=== PATIENT | male | born 2000 | race Caucasian/White ===

== ENCOUNTER 2021-01-30 11:01 | Emergency (ER) | payer OTHER, SELFPAY ==
[2021-01-30 11:01] VITALS: BP 150/89; PULSE 112; RESP 16; TEMP 36.6; O2SAT 98; BMI 30.4
--- NOTE | 2021-01-30 11:32 | RAD_ITS ---
STUDY: X-RAY CHEST REASON FOR EXAM: Male, 20 years old. Chest pain. TECHNIQUE: PA and lateral views of the chest. COMPARISON: None. FINDINGS: EKG electrodes are seen. The lungs are clear and expanded. There is no demonstrated pleural abnormality. Normal size heart. Normal mediastinum and miranda. Normal visualized pulmonary arteries. Normal visualized aortic arch and descending thoracic aorta. Normal visualized thoracic spine. Normal visualized ribs, clavicles, and shoulders. There is no demonstrated abnormality of the visualized soft tissue structures of the upper abdomen. RAD/Chest PA and Lateral IMPRESSION: Normal x-ray examination of the chest. Electronically Signed: Krzysztof Rizvi MD at 12:30 EST , Service support ,
--- NOTE | 2021-01-30 11:32 | EKG12_ITS ---
Test Reason : CP Blood Pressure : / mmHG Vent. Rate : 095 BPM Atrial Rate : 095 BPM P-R Int : 128 ms QRS Dur : 088 ms QT Int : 358 ms P-R-T Axes : 041 009 018 degrees QTc Int : 449 ms Normal sinus rhythm Normal ECG Confirmed by CHRISTEL EDDY, DAYLIN ([id number]), assignment desk editor DREW DEL VALLE ([id number]) on 02/02/2021 1:11:26 PM Referred By: TAINA/JAVI Confirmed By:DAYLIN KEARNEY MD
--- NOTE | 2021-01-30 11:32 | ED.VIS.CHEST ---
HPI History of Present Illness Chief Complaint: Chest Pain Informant: patient Onset/Context/Timing Onset: Days (3-4) Activity at onset: gradual Timing: Intermittent Quality: Positive for Burning Location: Substernal (w/o radiation) Current Severity: Mild Maximum Severity: Moderate Worsened By: Exertion (but only in cold outside air) Relieved By: Rest (indoors) Associated Symptoms: Negative for Nausea, Vomiting, Diaphoresis, Dyspnea, Cough, Fever, Lightheadedness and Palpitations Narrative Narrative: Patient presents for evaluation of nonpleuritic chest burning that feels like it is in his lungs when he exerts himself, but only in the outdoor cold air. When he walks around indoors he does not have symptoms. He denies any coughing fevers history of asthma inhalation of any abnormal/chemical substance lately, or any other symptoms. No leg pain or swelling, no history of DVT or PE. He is a local college student who was sent here for further evaluation. PE Risk Factors: Negative for Recent Travel/Surgery, Recent Immobilization, Prior DVT or PE, Cancer and OCP + Smoking + >/=35 PFSH PFSH Medical History no medical history no medical history Home Medications albuterol sulfate [Ventolin HFA] 1 - 2 puff INHALATION Q4H PRN PRN #1 inhaler 01/30/21 [Rx Last Taken Unknown] Allergy/AdvReac Type Severity Reaction Status Date / Time No Known Allergies Allergy Verified 01/30/21 11:03 Surgical History no surgical history no surgical history Social History Smoking Status: Unknown if ever smoked ROS ROS ED Constitutional Constitutional ED: Denies chills or fever(s) Eyes Eyes: Denies change in vision or diplopia ENT ENT ED: Denies rhinorrhea or sore throat Cardiovascular Cardiovascular: Reports as per HPI and chest pain; Denies palpitations Respiratory/Chest Respiratory/Chest: Denies cough or dyspnea Gastrointestinal Gastrointestinal: Denies abdominal pain, diarrhea, nausea or vomiting Genitourinary Genitourinary ED: Denies dysuria or hematuria Musculoskeletal Musculoskeletal: Denies back pain or neck pain Integumentary Denies abscess or rash Neurologic Neurologic: Denies headache(s), paresthesias or weakness Psychiatric Psychiatric: Denies anxiety or suicidal thoughts EXAM Physical Exam Const Vital Signs: 01/30/21 11:01 01/30/21 12:11 01/30/21 13:39 Temperature 97.8 F Temperature Source Temporal Pulse Rate 112 H 88 Respiratory Rate 16 14 Respiratory Effort Normal Non-Labored Blood Pressure 150/89 H Blood Pressure Mean 109 Pulse Ox 98 98 Oxygen Delivery Method Room Air Room Air 01/30/21 14:11 Temperature Temperature Source Pulse Rate 87 Respiratory Rate 20 H Respiratory Effort Blood Pressure 121/73 H Blood Pressure Mean 89 Pulse Ox 99 Oxygen Delivery Method Room Air Positive well nourished and well developed General Appearance ED: well developed and NAD HEENT Reports moist mucous membranes normocephalic and atraumatic Eyes PERRL and EOMs intact bilaterally Neck full ROM and supple Resp normal respiratory effort and clear to auscultation bilaterally Cardio regular rate, regular rhythm and no murmurs Rate: Negative for tachycardic GI non-tender and non-distended Auscultation: normoactive bowel sounds Palpation: soft Back/Spine no CVA tenderness General Back: other FROM Extremity normal to inspection General Extremety ED: Negative for edema, pulses abnormal or tenderness General Extremity: Negative for edema or pulses abnormal Neuro oriented x3, CN's II-XII intact bilaterally and no sensory deficits noted Sensorium / Orientation: awake and alert Motor Exam: strength 5/5 throughout Skin no rashes or lesions noted and no wounds Heart Score History: Slightly/Non-Suspicious ECG: Normal Age: </= 45 years Risk Factors: No Risk Factors Troponin: </= Normal Limit Score: 0 MDM MDM MDM Narrative Medical decision making narrative: Work-up including labs, troponin, EKG, chest x-ray are all normal. Patient clinically is well with normal vital signs, will send him home with a prescription for albuterol inhaler to use as needed, discussed reasons to return he is comfortable with that plan. Lab Data Attestation: I reviewed the patient's lab results. Labs: Laboratory Results - last 24 hr 01/30/21 01/30/21 12:08 12:08 WBC 13.9 H RBC 5.53 Hgb 16.1 Hct 48.8 MCV 88.2 MCH 29.1 MCHC 33.0 RDW Std Deviation 40.6 RDW Coeff of Bijan 12.4 Plt Count 231 MPV 9.3 Immature Gran % (Auto) 0.300 Neut % (Auto) 76.5 H Lymph % (Auto) 15.2 L [place] % (Auto) 7.1 Eos % (Auto) 0.5 Baso % (Auto) 0.4 Absolute Neuts (auto) 10.6 H Absolute Lymphs (auto) 2.11 Nucleated RBC % 0 Sodium 140 Potassium 4.0 Chloride 108 H Carbon Dioxide 28.0 Anion Gap 4 L BUN 10 Creatinine 0.90 Estim Creat Clear Calc 155.18 Est GFR (MDRD) Af Amer 137 Est GFR (MDRD) Non-Af 113 BUN/Creatinine Ratio 11.1 Glucose 90 Calcium 9.2 Troponin I High Sens 4 Radiography Diagnostic Testing: Clinical Impression(s) from Imaging Studies Chest X-Ray 01/30/21 11:32 IMPRESSION: Normal x-ray examination of the chest. Electronically Signed: Krzysztof Rizvi MD at 12:30 EST , Service support , Rhythm Strip Rhythm Strip: Sinus Rhythm Rate: 95 Ectopy: None EKG Initial EKG: Attestation: I personally reviewed and interpreted this EKG as follows: Interpretation: Sinus Rhythm and No Acute Injury Pattern Comments: Normal EKG Discharge Plan Triage Chief Complaint: Chest Pain ED Provider: Phan Sena Dx/Rx/DC Orders Clinical Impression: Chest pain, non-cardiac Instructions: ED Chest Pain, Noncardiac Prescriptions: New albuterol sulfate [Ventolin HFA] 1 INHALER inhaler 1 - 2 puff inhalation Q4H PRN PRN (Reason: Wheezing) Qty: 1 RF: 0 Primary Care Provider: Luis Pruett Referrals: Luis Pruett MD [Primary Care Provider] - 1 Week if not improving Disposition Disposition: Home, Self Care
[2021-01-30 12:14] LABS: Absolute Lymphocyte Count 2.11 X10^3/uL (0.83-4.51); Absolute Neutrophil Count 10.6 X10^3/uL (2.0-7.7); Basophil# 0.05 X10^3/uL; Basophil% 0.4 % (0-1); Eosinophil# 0.07 X10^3/uL; Eosinophils% 0.5 % (0-5); Hematocrit 48.8 % (40-54); Hemoglobin 16.1 g/dL (13.0-16.5); Lymphocyte # 2.11 X10^3/ul (0.83-4.51); Lymphocyte % 15.2 % (19-41); Mean Corpuscular Hgb 29.1 pg (27.0-32.0); Mean Corpuscular Volume 88.2 fL (80-94); Mean Platelet Vol. 9.3 fl (6.2-12.0); Monocyte# 0.99 X10^3/uL; Monocyte% 7.1 % (0-10); NRBC Flagged by Analyzer 0 % (0-5); Neutrophil # 10.61 X10^3/uL (2.7-7.7); Neutrophil % 76.5 % (47-70); Platelet Count 231 K/mm3 (150-450); RBC Distribution Width CV 12.4 % (11.6-14.6); RBC Distribution Width SD 40.6 fl (35.1-43.9); Red Blood Count 5.53 M/mm3 (4.6-6.2); White Blood Count 13.9 K/mm3 (4.4-11.0)
[2021-01-30 12:35] LABS: Anion Gap 4 (5-15); BUN 10 mg/dL (7-18); BUN/Creat Ratio 11.1 RATIO (10-20); Calcium,Total 9.2 mg/dL (8.5-10.1); Chloride 108 mmol/L (98-107); EST Glomerular Filtration Rate 113 mL/min (>60); Est Glom Filt Rate - Afr Amer 137 mL/min (>60); Estimated Creatinine Clearance 155.18 ml/min; Glucose 90 mg/dL (74-106); Sodium Level 140 mmol/L (136-145); Troponin-I HS 4 pg/mL (3.0-78.0)
[2021-01-30 13:39] VITALS: PULSE 88; RESP 14; O2SAT 98
[2021-01-30 14:11] VITALS: BP 121/73; PULSE 87; RESP 20; O2SAT 99
== END 2021-01-30 14:35 | disposition home or self-care (01) ==
PROVIDERS: Emergency Provider Emergency Medicine; PCP Pediatrics
DX: R07.89 Other chest pain (principal)
CPT/HCPCS: 71046; 80048; 84484; 85025; 93005; 99283

== ENCOUNTER → 2021-02-16 12:40 | Outpatient (CLI) | payer OTHER, SELFPAY | PROVIDERS: PCP Pediatrics; Visit Provider Family Medicine | DX: Z23 Encounter for immunization (principal) ==